=== PATIENT | male | born 1965 ===

== ENCOUNTER 2022-10-31 16:51 | Inpatient (IN) | payer OTHER ==
[~2022-10-31] VITALS: Ht 180.3 cm; Wt 80.5 kg
[2022-10-31 17:17] LABS: BASOPHILS % (AUTO) 0.6 % (0.0-2.0); EOSINOPHILS % (AUTO) 3.1 % (1.0-6.0); HEMATOCRIT 49.8 % (41-53); HEMOGLOBIN 16.4 g/dL (13.5-17.5); LYMPHOCYTES # (AUTO) 1.3 K/uL (1.0-4.8); LYMPHOCYTES % (AUTO) 9.1 % (22.0-44.0); MEAN CORPUSCULAR HEMOGLOBIN 33.8 pg (26.0-34.0); MEAN CORPUSCULAR VOLUME 102 fL (80-100); MONOCYTES # (AUTO) 1.4 K/uL (0.1-1.0); MONOCYTES % (AUTO) 9.7 % (2.0-9.0); NEUTROPHILS % (AUTO) 77.5 % (40.0-70.0); PLATELET COUNT (AUTO) 146 K/uL (150-450); RED BLOOD CELL COUNT(AUTO) 4.87 MIL/uL (4.50-5.90); RED CELL DISTRIBUTION WIDTH 12.9 % (11.5-14.5)
[2022-10-31 17:23] LABS: ANION GAP 5 mmol/L (8-16); CALCIUM, TOTAL 7.7 mg/dL (8.8-10.5); CARBON DIOXIDE 32 mmol/L (22-29); CHLORIDE 104 mmol/L (98-107); CREATININE 0.84 mg/dL (0.60-1.30); GLUCOSE,RANDOM 210 mg/dL (70-110); POTASSIUM 4.8 mmol/L (3.5-5.1); SODIUM SERUM 141 mmol/L (136-145); UREA NITROGEN, BLOOD 10 mg/dL (7-18)
[2022-10-31 17:24] LABS: INR 1.2 (0.9-1.1); PROTHROMBIN TIME 12.4 SEC (9.4-11.6)
[2022-10-31 17:26] LABS: GLOMERULAR FILTR. RATE CALC > 60 mL/min (>60)
[2022-10-31 17:29] LABS: ALANINE AMINOTRANSFERASE 49 U/L (12-78); ALBUMIN 3.3 g/dL (3.4-5.0); ALKALINE PHOSPHATASE 76 U/L (46-116); ASPARTATE AMINOTRANSFERASE 47 U/L (15-37); BILIRUBIN,TOTAL 0.9 mg/dL (0.1-1.0); CREATINE KINASE, TOTAL ONLY 86 U/L (39-308); TOTAL PROTEIN, SERUM 6.8 g/dL (6.4-8.2)
[2022-10-31] MEDS ORDERED: NiCARDipine HCL 25 MG in SODIUM CHLORIDE 0.9% 240 ML IV PRN (18:00)
[2022-10-31 18:57] LABS: ABG BASE EXCESS 4.5 mmol/L (-2.0-3.0); ABG CARBOXYHEMOGLOBIN 0.3 % (0.0-1.5); ABG HCO3 25.7 mmol/L (22.0-26.0); ABG METHEMOGLOBIN 0.8 % (0.0-1.5); ABG OXYGEN SATURATION 99.6 % (95.0-98.0); ABG OXYHEMOGLOBIN 98.5 % (94.0-100.0); ABG PH 7.285 (7.35-7.450); ABG TOTAL HEMOGLOBIN 19.1 G/dL (12.0-18.0); PO2, ARTERIAL BG 575.6 mmHg (84.0-92.0); SOURCE, BLOOD GAS ARTERIAL; TEMPERATURE, FAHRENHEIT, BG 95.4 FAHREN (96.0-98.6)
[2022-10-31] MEDS: PROPOFOL 1000 MG/ISO-OSM 100 ML IV PRN (19:17)
[2022-10-31 19:28] LABS: APPEARANCE,URINE CLEAR (CLEAR); BILIRUBIN,URINE NEGATIVE (NEGATIVE); GLUCOSE, URINE (UA) 150-200 mg/dL (NEGATIVE); KETONES,URINE NEGATIVE (NEGATIVE); LEUKOCYTE ESTERASE ,URINE NEGATIVE (NEGATIVE); NITRATE,URINE NEGATIVE (NEGATIVE); OCCULT BLOOD,URINE NEGATIVE (NEGATIVE); PROTEIN,URINE 30-70 mg/dL (NEGATIVE); SPECIFIC GRAVITIY, URINE 1.008 (1.003-1.030); UROBILINOGEN,URINE <=1.0 mg/dL (<=1.0)
[2022-10-31] MEDS ORDERED: IPRATROPIUM BROMIDE 0.5 MG/2.5 ML NEB SOLUTION NEB ONE (19:30)
[2022-10-31] MEDS ORDERED: ALBUTEROL SULFATE 2.5 MG/0.5 ML NEB SOLUTION NEB ONE (19:30)
[2022-10-31] MEDS ORDERED: MethylPREDNISolone SOD SUCC 125 MG/2 ML VIAL IVP ONE (19:30)
[2022-10-31 19:43] LABS: LACTIC ACID 3.3 mmol/L (0.4-2.0)
[2022-10-31 19:46] LABS: B-TYPE NATRIURETIC PEPTIDE 104 pg/mL (0-100)
[2022-10-31 20:06] LABS: BACTERIA,URINE None Seen /HPF (None Seen); RBC,URINE None Seen /HPF (0-2); WBC,URINE 0-2 /HPF (0-5)
[2022-10-31] MEDS ORDERED: PIPERACILLIN/TAZO 3.375 GM/D5W 50 ML IV ONE (20:15)
[2022-10-31] MEDS ORDERED: LORazepam 2 MG/ML VIAL IVP ONE (20:15)
[2022-10-31] MEDS ORDERED: MIDAZOLAM HCL 100 MG in SODIUM CHLORIDE 0.9% 180 ML IV PRN (20:15)
[2022-10-31 20:18] LABS: AMPHET/METH SCREEN,URINE NEGATIVE (NEGATIVE); BARBITURATE SCREEN, URINE NEGATIVE (NEGATIVE); BENZODIAZEPINES SCREEN,URINE NEGATIVE (NEGATIVE); CANNABINOID SCREEN,URINE NEGATIVE (NEGATIVE); COCAINE SCREEN,URINE NEGATIVE (NEGATIVE); METHADONE SCREEN, URINE NEGATIVE (NEGATIVE); OPIATE SCREEN,URINE NEGATIVE (NEGATIVE)
[2022-10-31 20:20] LABS: PHENCYCLIDINE SCREEN,URINE NEGATIVE (NEGATIVE)
[2022-10-31] MEDS ORDERED: *CLINICAL-CEFEPIME DOSING CLINICAL ONE ×2 (20:30→20:45)
[2022-10-31] MEDS ORDERED: DEXTROSE 50%-WATER 25 GM/50 ML SYRINGE IVP PRN (20:45)
[2022-10-31] MEDS ORDERED: ONDANSETRON HCL 4 MG/2 ML VIAL IVP PRN (20:45)
[2022-10-31] MEDS ORDERED: ACETAMINOPHEN 325 MG TABLET PO PRN (20:45)
[2022-10-31] MEDS: CEFEPIME HCL 2 GM in DEXTROSE 5%-WATER 50 ML IV ONE ×2 (20:50→21:28)
[2022-10-31] MEDS ORDERED: VANCOMYCIN HCL 1.5 GM in DEXTROSE 5%-WATER 250 ML IV ONE (21:00)
[2022-10-31] MEDS ORDERED: MAGNESIUM SULFATE 2 GM/WATER 50 ML IV ONE (21:00)
[2022-10-31] MEDS: FAMOTIDINE 10 MG/ML 2 ML VIAL IVP SCH (21:28)
[2022-10-31 21:43] LABS: ABG A-A DIFF O2 75.3 mmHg (10-20.0); ABG PCO2 67 mmHg (35-45); SITE, BLOOD GAS LFT RADIAL
[2022-10-31 21:44] LABS: O2 DEVICE,BLOOD GAS VENT (ROOM AIR); PEEP,BG 5 cm H2O; VT, ABG 500 ml
[2022-10-31] MEDS: IPRATROPIUM BROMIDE 0.5 MG/2.5 ML NEB SOLUTION NEB SCH (21:55)
[2022-10-31] MEDS: ALBUTEROL SULFATE 2.5 MG/0.5 ML NEB SOLUTION NEB SCH (21:55)
[2022-10-31 22:49] LABS: COVID AG,FIA SOURCE NASAL SWAB
[2022-10-31] MEDS ORDERED: SODIUM CHLORIDE 0.9% 500 ML IV ONE (23:00)
[2022-10-31] MEDS ORDERED: NOREPINEPHRINE 8 MG/D5%-WATER 250 ML IV PRN (23:30)
[2022-11-01] MEDS: PROPOFOL 1000 MG/ISO-OSM 100 ML IV PRN (00:47)
[2022-11-01] MEDS: IPRATROPIUM BROMIDE 0.5 MG/2.5 ML NEB SOLUTION NEB SCH (00:59)
[2022-11-01] MEDS: ALBUTEROL SULFATE 2.5 MG/0.5 ML NEB SOLUTION NEB SCH (00:59)
[2022-11-01] MEDS: CEFEPIME HCL 2 GM in DEXTROSE 5%-WATER 50 ML IV SCH ×3 (05:25→21:59)
[2022-11-01 05:54] LABS: ANION GAP 6 mmol/L (8-16); CALCIUM, TOTAL 7.6 mg/dL (8.8-10.5); CARBON DIOXIDE 30 mmol/L (22-29); CHLORIDE 105 mmol/L (98-107); CREATININE 0.72 mg/dL (0.60-1.30); GLOMERULAR FILTR. RATE CALC > 60 mL/min (>60); GLUCOSE,RANDOM 156 mg/dL (70-110); POTASSIUM 4.5 mmol/L (3.5-5.1); SODIUM SERUM 141 mmol/L (136-145); UREA NITROGEN, BLOOD 10 mg/dL (7-18)
[2022-11-01 07:26] LABS: BASOPHILS % (AUTO) 0.1 % (0.0-2.0); EOSINOPHILS % (AUTO) 0.1 % (1.0-6.0); HEMATOCRIT 45.2 % (41-53); LYMPHOCYTES # (AUTO) 0.3 K/uL (1.0-4.8); LYMPHOCYTES % (AUTO) 4.8 % (22.0-44.0); MEAN CORPUSCULAR HEMOGLOBIN 33.7 pg (26.0-34.0); MEAN CORPUSCULAR HGB CONC 33.2 G/dL (31.0-37.0); MEAN CORPUSCULAR VOLUME 101 fL (80-100); MONOCYTES # (AUTO) 0.1 K/uL (0.1-1.0); MONOCYTES % (AUTO) 1.5 % (2.0-9.0); NEUTROPHILS # (AUTO) 6.8 K/uL (1.8-7.7); RED BLOOD CELL COUNT(AUTO) 4.46 MIL/uL (4.50-5.90); RED CELL DISTRIBUTION WIDTH 12.6 % (11.5-14.5)
[2022-11-01] MEDS ORDERED: PROPOFOL 1000 MG/ISO-OSM 100 ML IV PRN (07:30)
[2022-11-01 07:35] LABS: NEUTROPHILS % (AUTO) 93.5 % (40.0-70.0)
[2022-11-01 07:47] LABS: PLATELET COUNT (AUTO) 77 K/uL (150-450)
[2022-11-01 07:55] LABS: LACTIC ACID 2.1 mmol/L (0.4-2.0)
[2022-11-01 08:03] LABS: GLUCOSE,POINT OF CARE 140 MG/DL (70-110)
[2022-11-01] MEDS: VANCOMYCIN 1GM/WATER(PEG/NADA) 200 ML IV SCH ×2 (08:39→15:49)
[2022-11-01] MEDS: FAMOTIDINE 10 MG/ML 2 ML VIAL IVP SCH ×2 (09:03→21:10)
[2022-11-01] MEDS: MethylPREDNISolone SOD SUCC 125 MG/2 ML VIAL IVP SCH (09:03)
[2022-11-01 19:56] LABS: ANION GAP 3 mmol/L (8-16); CALCIUM, TOTAL 7.7 mg/dL (8.8-10.5); CARBON DIOXIDE 30 mmol/L (22-29); CHLORIDE 107 mmol/L (98-107); GLUCOSE,RANDOM 139 mg/dL (70-110); POTASSIUM 4.1 mmol/L (3.5-5.1); SODIUM SERUM 140 mmol/L (136-145); UREA NITROGEN, BLOOD 10 mg/dL (7-18)
[2022-11-01 20:05] LABS: GLOMERULAR FILTR. RATE CALC > 60 mL/min (>60)
[2022-11-01] MEDS ORDERED: SODIUM CHLORIDE 0.9% 250 ML IV ONE (21:52)
[2022-11-01] MEDS: HEPARIN SODIUM,PORCINE 5,000 UNITS/ML VIAL SQ SCH (23:34)
[2022-11-02] VITALS: BP 139/87
[2022-11-02] MEDS: VANCOMYCIN 1GM/WATER(PEG/NADA) 200 ML IV SCH (00:13)
[2022-11-02 00:59] LABS: GLUCOSE,POINT OF CARE 137 MG/DL (70-110)
[2022-11-02] MEDS: PROPOFOL 1000 MG/ISO-OSM 100 ML IV PRN ×2 (01:04→05:24)
[2022-11-02 01:21] LABS: ABG BASE EXCESS 2.6 mmol/L (-2.0-3.0); ABG CARBOXYHEMOGLOBIN 0.5 % (0.0-1.5); ABG HCO3 26.3 mmol/L (22.0-26.0); ABG OXYGEN CONTENT 20.5 mL/dL (15.0-23.0); ABG OXYGEN SATURATION 97.9 % (95.0-98.0); ABG OXYHEMOGLOBIN 97.4 % (94.0-100.0); ABG PCO2 44 mmHg (35-45); ABG PH 7.411 (7.35-7.450); ABG TOTAL HEMOGLOBIN 14.9 G/dL (12.0-18.0); PO2, ARTERIAL BG 96.2 mmHg (84.0-92.0); SOURCE, BLOOD GAS ARTERIAL; TEMPERATURE, FAHRENHEIT, BG 97.7 FAHREN (96.0-98.6)
[2022-11-02 01:23] LABS: ABG A-A DIFF O2 139.9 mmHg (10-20.0); O2 DEVICE,BLOOD GAS VENT (ROOM AIR); PEEP,BG 5 cm H2O; SITE, BLOOD GAS RT RADIAL; VT, ABG 500 ml
[2022-11-02] MEDS ORDERED: IOHEXOL 350 MG/ML 100 ML VIAL ONE (02:30)
[2022-11-02] MEDS ORDERED: SODIUM CHLORIDE 0.9% 100 ML ONE (02:30)
[2022-11-02 04:00] VITALS: BP 151/94
[2022-11-02] MEDS: CEFEPIME HCL 2 GM in DEXTROSE 5%-WATER 50 ML IV SCH ×3 (05:07→22:27)
[2022-11-02 06:16] LABS: ANION GAP 3 mmol/L (8-16); CALCIUM, TOTAL 7.9 mg/dL (8.8-10.5); CARBON DIOXIDE 29 mmol/L (22-29); CHLORIDE 108 mmol/L (98-107); CREATININE 0.68 mg/dL (0.60-1.30); GLUCOSE,RANDOM 138 mg/dL (70-110); POTASSIUM 4.3 mmol/L (3.5-5.1); SODIUM SERUM 140 mmol/L (136-145); UREA NITROGEN, BLOOD 11 mg/dL (7-18)
[2022-11-02 06:17] LABS: GLOMERULAR FILTR. RATE CALC > 60 mL/min (>60)
[2022-11-02 08:00] VITALS: BP 146/94
[2022-11-02] MEDS ORDERED: VANCOMYCIN HCL 1.25 GM in DEXTROSE 5%-WATER 250 ML IV SCH (08:00)
[2022-11-02] MEDS: VANCOMYCIN HCL 1.5 GM in DEXTROSE 5%-WATER 250 ML IV SCH ×2 (08:22→16:06)
[2022-11-02] MEDS: MethylPREDNISolone SOD SUCC 125 MG/2 ML VIAL IVP SCH (08:22)
[2022-11-02] MEDS: FAMOTIDINE 10 MG/ML 2 ML VIAL IVP SCH ×2 (08:23→22:27)
[2022-11-02] MEDS: ETHYL ALCOHOL 62% ANTISEPTIC NASAL SANITIZER 0.6 ML AMPUL NASAL SCH ×2 (08:23→22:27)
[2022-11-02] MEDS: HEPARIN SODIUM,PORCINE 5,000 UNITS/ML VIAL SQ SCH ×2 (08:23→16:06)
[2022-11-02 10:42] LABS: ABG BASE EXCESS 1.9 mmol/L (-2.0-3.0); ABG CARBOXYHEMOGLOBIN 0.3 % (0.0-1.5); ABG HCO3 25.9 mmol/L (22.0-26.0); ABG METHEMOGLOBIN 0.3 % (0.0-1.5); ABG OXYGEN CONTENT 22.3 mL/dL (15.0-23.0); ABG OXYGEN SATURATION 98.5 % (95.0-98.0); ABG OXYHEMOGLOBIN 97.9 % (94.0-100.0); ABG PCO2 43 mmHg (35-45); ABG PH 7.412 (7.35-7.450); ABG TOTAL HEMOGLOBIN 16.1 G/dL (12.0-18.0); PO2, ARTERIAL BG 113.5 mmHg (84.0-92.0); SOURCE, BLOOD GAS ARTERIAL; TEMPERATURE, FAHRENHEIT, BG 98.6 FAHREN (96.0-98.6)
[2022-11-02 12:00] VITALS: BP 161/96
[2022-11-02 12:11] LABS: ABG A-A DIFF O2 122.7 mmHg (10-20.0); CPAP, BG 0 cm H2O; O2 DEVICE,BLOOD GAS VENTILATOR (ROOM AIR); PRESSURE SUPPORT, BG 8 cm H2O; SITE, BLOOD GAS RT RADIAL; SPONTANEOUS VT, BG 600 ml; VENT MODE, BG CPAP (ROOM AIR)
[2022-11-02 12:54] LABS: GLUCOSE,POINT OF CARE 120 MG/DL (70-110)
[2022-11-02] MEDS: NICOTINE 14 MG/24 HOUR PATCH TD SCH (14:22)
[2022-11-02 16:00] VITALS: BP 139/81
[2022-11-02] MEDS ORDERED: SODIUM CHLORIDE 0.9% 500 ML IV ONE (16:04)
[2022-11-02] MEDS: IPRATROPIUM BROMIDE 0.5 MG/2.5 ML NEB SOLUTION NEB PRN (16:10)
[2022-11-02] MEDS: ALBUTEROL SULFATE 2.5 MG/0.5 ML NEB SOLUTION NEB PRN (16:10)
[2022-11-02] MEDS: INSULIN LISPRO 100 UNITS/ML SQ PRN (18:43)
[2022-11-02 19:33] LABS: GLUCOSE,POINT OF CARE 143 MG/DL (70-110)
[2022-11-02 19:34] LABS: GLUCOSE,POINT OF CARE 163 MG/DL (70-110)
[2022-11-02 20:00] VITALS: BP 123/77
[2022-11-02] MEDS ORDERED: LORazepam 2 MG/ML VIAL IM PRN (22:15)
[2022-11-02] MEDS: LORazepam 2 MG/ML VIAL IVP PRN (22:38)
[2022-11-03] VITALS (7 sets, daily range): BP systolic 107–160; BP diastolic 55–102
[2022-11-03] MEDS: HEPARIN SODIUM,PORCINE 5,000 UNITS/ML VIAL SQ SCH ×3 (00:24→16:32)
[2022-11-03] MEDS: VANCOMYCIN HCL 1.5 GM in DEXTROSE 5%-WATER 250 ML IV SCH ×3 (00:24→16:37)
[2022-11-03] MEDS: LORazepam 2 MG/ML VIAL IVP PRN (03:03)
[2022-11-03 04:03] LABS: GLUCOSE,POINT OF CARE 131 MG/DL (70-110)
[2022-11-03] MEDS: CEFEPIME HCL 2 GM in DEXTROSE 5%-WATER 50 ML IV SCH ×3 (05:27→20:18)
[2022-11-03 05:56] LABS: ANION GAP 3 mmol/L (8-16); CARBON DIOXIDE 31 mmol/L (22-29); CHLORIDE 108 mmol/L (98-107); CREATININE 0.65 mg/dL (0.60-1.30); GLUCOSE,RANDOM 126 mg/dL (70-110); POTASSIUM 3.7 mmol/L (3.5-5.1); SODIUM SERUM 142 mmol/L (136-145); UREA NITROGEN, BLOOD 14 mg/dL (7-18); VANCOMYCIN,RANDOM 25.2 mcg/mL (25.0-50.0)
[2022-11-03 05:59] LABS: GLOMERULAR FILTR. RATE CALC > 60 mL/min (>60)
[2022-11-03] MEDS: FAMOTIDINE 10 MG/ML 2 ML VIAL IVP SCH ×2 (08:22→20:18)
[2022-11-03] MEDS: ETHYL ALCOHOL 62% ANTISEPTIC NASAL SANITIZER 0.6 ML AMPUL NASAL SCH ×2 (08:23→20:18)
[2022-11-03] MEDS: MethylPREDNISolone SOD SUCC 125 MG/2 ML VIAL IVP SCH (08:23)
[2022-11-03] MEDS: NICOTINE 14 MG/24 HOUR PATCH TD SCH (08:23)
[2022-11-03] MEDS ORDERED: PredniSONE 20 MG TABLET PO SCH (12:00)
[2022-11-03] MEDS: INSULIN LISPRO 100 UNITS/ML SQ PRN ×2 (12:49→17:46)
[2022-11-03 13:02] LABS: GLUCOSE,POINT OF CARE 161 MG/DL (70-110)
[2022-11-03 13:02] LABS: GLUCOSE,POINT OF CARE 135 MG/DL (70-110)
[2022-11-03] MEDS ORDERED: SODIUM CHLORIDE 0.9% 500 ML IV ONE (20:12)
[2022-11-03] MEDS ORDERED: TraZODone HCL 50 MG TABLET PO ONE (20:15)
[2022-11-03 20:22] LABS: GLUCOSE,POINT OF CARE 178 MG/DL (70-110)
[2022-11-03] MEDS: IPRATROPIUM BROMIDE 0.5 MG/2.5 ML NEB SOLUTION NEB PRN (20:53)
[2022-11-03] MEDS: ALBUTEROL SULFATE 2.5 MG/0.5 ML NEB SOLUTION NEB PRN (20:53)
== END 2022-11-03 23:20 | disposition critical access hospital (66) | DRG 871 ==
LOC: EMS 16:56 → ICUN 11-01 15:49 → ICU 11-01 19:00 → 5S 11-03 18:50
PROVIDERS: ADMIT Internal Medicine; ATTEND Internal Medicine
PROC: 5A1945Z Respiratory Ventilation, 24-96 Consecutive Hours (ICD-10-PCS; principal; 2022-10-31)
PROC: 0BH17EZ Insertion of Endotracheal Airway into Trachea, Via Natural or Artificial Opening (ICD-10-PCS; 2022-10-31)
DX: A41.9 Sepsis, unspecified organism (principal); I21.A1 Myocardial infarction type 2; I46.9 Cardiac arrest, cause unspecified; J96.02 Acute respiratory failure with hypercapnia; J96.01 Acute respiratory failure with hypoxia; R65.21 Severe sepsis with septic shock; J69.0 Pneumonitis due to inhalation of food and vomit; J90 Pleural effusion, not elsewhere classified; Z99.11 Dependence on respirator [ventilator] status; F10.139 Alcohol abuse with withdrawal, unspecified; Z20.822 Contact with and (suspected) exposure to COVID-19; J44.9 Chronic obstructive pulmonary disease, unspecified; D69.6 Thrombocytopenia, unspecified; K76.9 Liver disease, unspecified; R73.9 Hyperglycemia, unspecified; F17.210 Nicotine dependence, cigarettes, uncomplicated; I10 Essential (primary) hypertension; K74.60 Unspecified cirrhosis of liver; Z88.0 Allergy status to penicillin; Z88.2 Allergy status to sulfonamides; Z71.41 Alcohol abuse counseling and surveillance of alcoholic
CPT/HCPCS: 36600; 70450; 71045; 71275; 80048; 80053; 80202; 80307; 81001; 81003; 82550; 82805; 82962; 83605; 83880; 84484; 85025; 85610; 85730; 87040; 87081; 92610; 92950; 93005; 93306; 94002; 94003; 94640; 99291; G0378; J0692; J1644; J2060; J2250; J2543; J2704; J2930; J3370; J3475; J3490; J7040; J7050; J7060; Q9967; 36415-L1; 36415-TC; J7613